=== PATIENT | male | born 1950 | race Caucasian/White ===

== ENCOUNTER 2020-07-27 09:33 | Outpatient (CLI) | payer MEDICARE, BC, SELFPAY ==
--- NOTE | 2020-07-28 17:15 | WPDSIXMINUTE ---
Six Minute Walk Six Minute Walk: DOS: 07/27/2020 REQUESTING: Jud Noland NP REASON FOR TESTING: COPD SIX MINUTE WALK This test was conducted per ATS guidelines. The initial saturation was 96% and the pulse was 87. During walking, the saturation was maintained between 92% to 94%. Pulse ranged from 87 to 112. At the conclusion, the pulse was 95. Distance walked was 800 feet / 244 meters, and was performed without stopping to rest. This distance is than expected for age,. IMPRESSION: No rebecca hypoxemia, and no supplemental O2 indicated with exertion.
== END 2020-07-27 09:34 | disposition home or self-care (01) ==
PROVIDERS: Visit Provider Nurse Practitioner
DX: R06.09 Other forms of dyspnea (principal)
CPT/HCPCS: 94618

== ENCOUNTER 2021-03-17 14:09 | Outpatient (CLI) | payer MEDICARE, BC, SELFPAY ==
--- NOTE | ~2021-03-17 | CT_ITS ---
EXAMINATION:CT diagnostic chest wo con DATE: 03/17/2021 14:34 INDICATION: Abnormal pulmonary function tests. TECHNIQUE: Computed tomography (CT) of the chest was performed without intravenous contrast. Automate d exposure control and iterative reconstruction technique were employed. The dose-length product (DLP ) was 686.53 mGy-cm. COMPARISON: None. FINDINGS: There is mild atelectasis in right lower lobe. No bronchiectasis or honeycombing. A calcifi ed left lung nodules consistent with old granulomatous disease. No pleural effusion. The heart size i s normal. There are coronary artery calcifications. No pericardial effusion. There are changes of pos terior kidney. There is a 2.3 cm mass of fat in left adrenal gland, consistent with a myelolipoma. Th ere is an electronic implant in left anterior chest wall. There is mild thoracic spondylosis. IMPRESSION: 1. Mild right lower lobe atelectasis. Reviewed, dictated and finalized at location A.
== END 2021-03-17 14:10 | disposition home or self-care (01) ==
PROVIDERS: PCP Physician Assistant; Visit Provider Nurse Practitioner
DX: R94.2 Abnormal results of pulmonary function studies (principal); J98.11 Atelectasis
CPT/HCPCS: 71250

== ENCOUNTER 2021-11-09 08:01 | Outpatient (CLI) | payer MEDICARE, BC, SELFPAY ==
--- NOTE | 2021-11-09 10:56 | WPDSIXMINUTE ---
Six Minute Walk Procedure Procedure Performed Pulmonary Stress Test (6 min walk) Six Minute Walk This is a 6 minute walk test. The test was performed and interpreted in accordance with the 2014 ERS/ATS task force guidelines. Of note the patient did walk with her own personal cane Findings: The patient's resting room air oxygen saturation measured by pulse oximetry was 93% and heart rate was 78 bpm. Patient ambulated for 305 meters and oxygen saturation remained 90 to 95%. Heart rate at the end of the study was 108 bpm. The patient did not qualify for supplemental oxygen at rest or with ambulation. There are no prior studies for comparison.
== END 2021-11-09 08:02 | disposition home or self-care (01) ==
LOC: ANHPFT 08:03
PROVIDERS: PCP Physician Assistant; Visit Provider Nurse Practitioner
DX: J44.9 Chronic obstructive pulmonary disease, unspecified (principal)
CPT/HCPCS: 94618

== ENCOUNTER 2022-02-08 15:49 | Outpatient (CLI) | payer MEDICARE, BC, SELFPAY ==
--- NOTE | ~2022-02-08 | CT_ITS ---
EXAMINATION: CT diagnostic chest w con DATE: 02/08/2022 16:34 INDICATION: Posterior chest and back pain. Patient had a fall in January. TECHNIQUE: Computed tomography (CT) of the chest was performed with 75 CC Omnipaque 350 intravenous c ontrast. Automated exposure control and iterative reconstruction technique were employed. Exam dose: 483.56 mGy-cm total exam DLP. COMPARISON: 03/17/2021 CT chest FINDINGS: Normal heart size. Coronary artery calcifications. No pericardial or pleural effusion. There is aortic and great vessel calcification. No thoracic aortic aneurysm or dissection. No hilar or mediastinal mass lesion or lymphadenopathy. There is discoid atelectasis or scarring in the middle lobe and right lower lobe. Calcified left uppe r lobe pulmonary granuloma. No pulmonary infiltrate or consolidation or suspicious pulmonary mass lesion. Status post cholecystectomy. 2.6 cm left adrenal lipoma or myelolipoma. Lower anterior cervical spine surgical fusion. There is depression of the superior vertebral endplate of T8 consistent with compression fracture. Th ere is mild anterior wedging and loss of height of a number of lower thoracic vertebral bodies. Degenerative spurring of the thoracic spine. Diffuse osteopenia. No suspicious osteolytic or osteoblastic lesions are noted. Implanted device, left anterior chest wall. IMPRESSION: Chronic elevated right diaphragm. 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 Reviewed, dictated and finalized at location A. IMPRESSION: Chronic elevated right diaphragm. 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
[2022-02-08 16:28] LABS: Estimated Glomerular Filt Rate > 60
[2022-02-08 16:57] LABS: Blood Urea Nitrogen 17 mg/dL (9-20); Estimated Glomerular Filt Rate > 60
== END 2022-02-08 15:50 | disposition home or self-care (01) ==
LOC: ANHIMG 16:00
PROVIDERS: PCP Physician Assistant; Visit Provider Nurse Practitioner
DX: R07.9 Chest pain, unspecified (principal); R91.8 Other nonspecific abnormal finding of lung field; Z90.49 Acquired absence of other specified parts of digestive tract; D17.79 Benign lipomatous neoplasm of other sites; M48.54XA Collapsed vertebra, not elsewhere classified, thoracic region, initial encounter for fracture; Z98.1 Arthrodesis status; M85.88 Other specified disorders of bone density and structure, other site
CPT/HCPCS: 71260; 82565; 84520; Q9967

== ENCOUNTER 2022-06-22 12:33 | Outpatient (CLI) | payer MEDICARE, BC, SELFPAY ==
--- NOTE | ~2022-06-22 | CT_ITS ---
EXAMINATION: CT abdomen pelvis w con DATE: 06/22/2022 13:15 INDICATION: Muscle strain. TECHNIQUE: Computed tomography (CT) of the abdomen and pelvis was performed with 100 cc Omnipaque 350 intravenous contrast. The dose-length product was 1641.70 mGy-cm. Automated exposure control and ite rative reconstruction technique were employed. COMPARISON: None. FINDINGS: Heart size normal. No significant pleural or pericardial effusion. There is asymmetric atro phy of the left rectus muscles. There is a left hip arthroplasty. The spleen is not identified, likel y surgically absent. There are small nodules in the left upper abdomen, possibly splenosis. The liver , pancreas, right adrenal gland are unremarkable. There are nonobstructing bilateral renal stones. No hydronephrosis. There is a bladder stone. There is a 3 cm fat-containing left adrenal mass, consiste nt with adrenal myelolipoma. Nonobstructive bowel gas pattern. Colonic diverticulosis without evidenc e for diverticulitis. There are surgical changes at L4-5 and L5-S1 with laminectomy and prosthetic di sc devices. No acute osseous abnormality. No free air or free fluid. IMPRESSION: 1. Bladder stone. 2: Nonobstructing bilateral nephrolithiasis. 3: Left adrenal mass containing fat measuring 3 cm, consistent with benign adrenal myelolipoma. 4: Probable splenosis. Spleen likely surgically absent. Clinically correlate. Reviewed, dictated and finalized at location A. IMPRESSION: 1. Bladder stone. 2: Nonobstructing bilateral nephrolithiasis. 3: Left adrenal mass containing fat measuring 3 cm, consistent with benign adre nal myelolipoma. 4: Probable splenosis. Spleen likely surgically absent. Clinically correlate.
[2022-06-22 13:06] LABS: Estimated Glomerular Filt Rate > 60
== END 2022-06-22 12:34 | disposition home or self-care (01) ==
LOC: ANHIMG 12:39
PROVIDERS: PCP Physician Assistant; Visit Provider Physician Assistant
DX: M54.50 Low back pain, unspecified (principal); N21.0 Calculus in bladder; E27.9 Disorder of adrenal gland, unspecified
CPT/HCPCS: 74177; Q9967

== ENCOUNTER 2022-08-01 07:41 | Outpatient (CLI) | payer MEDICARE, BC, SELFPAY ==
--- NOTE | ~2022-08-01 | MR_ITS ---
EXAMINATION: MR lumbar spine wo con DATE: 08/01/2022 08:34 INDICATION: Low back pain. TECHNIQUE: Magnetic resonance imaging (MRI) of the lumbar spine was performed without intravenous con trast. Sequences included sagittal T2-weighted FSE, sagittal T2-weighted FS FSE, sagittal T1-weighted FSE, and axial T2-weighted FSE. COMPARISON: None FINDINGS: Bone alignment is normal. Vertebral body heights are normal. There is mildly decreased disc height at L3-L4. There are changes of anterior fusion procedures at L4-L5 and L5-S1 with interbody d evices. There are L4 and L5 laminectomies. The distal spinal cord signal intensity is normal. The con us medullaris is at T12-L1. The following disc levels are specifically discussed: L1-L2: The disc does not extend beyond the endplate margin. There is mild bilateral facet joint osteo arthritis. There is no neural foraminal stenosis. There is no central canal stenosis. L2-L3: The disc is mildly bulging. There is mild bilateral facet joint osteoarthritis. There is mild left neural foraminal stenosis. There is mild central canal stenosis. L3-L4: The disc is bulging and has an annular fissure. There is severe bilateral facet joint osteoart hritis. There is moderate bilateral neural foraminal stenosis. There is mild central canal stenosis. L4-L5: There is moderate right and severe left facet joint osteoarthritis. There is mild bilateral ne ural foraminal stenosis. There is no central canal stenosis. L5-S1: There is moderate bilateral facet joint hypertrophy. There is mild lateral neural foraminal st enosis. There is no central canal stenosis. IMPRESSION: 1. Moderate lumbar spondylosis. 2. Anterior fusion procedures at L4-L5 and L5-S1. Reviewed, dictated and finalized at location A.
== END 2022-08-01 07:42 | disposition home or self-care (01) ==
PROVIDERS: PCP Physician Assistant; Visit Provider Physician Assistant
DX: M47.817 Spondylosis without myelopathy or radiculopathy, lumbosacral region (principal); M48.07 Spinal stenosis, lumbosacral region
CPT/HCPCS: 72148

== ENCOUNTER 2022-08-12 08:29 | Outpatient (CLI) | payer MEDICARE, BC, SELFPAY ==
--- NOTE | ~2022-08-12 | MR_ITS ---
EXAMINATION: MR hip RT wo con DATE: 08/12/2022 09:42 INDICATION: Right hip pain TECHNIQUE: Magnetic resonance imaging (MRI) of the right hip was performed without intravenous contr ast. Sequences included full-field axial PD-weighted FS FSE and T1-weighted FSE, coronal of the pelvi s with PD-weighted FS FSE, T2-weighted FSE and T1-weighted FSE, small field of view of the right hip with axial PD-weighted FS FSE, sagittal PD-weighted FS FSE, coronal PD-weighted FS FSE and coronal T2 weighted FSE. Additional radial T1-weighted FGR oriented orthogonal to the acetabular rim were obt ained for evaluation of the labrum. COMPARISON: None FINDINGS: Bones/labrum/cartilage: Metallic magnetic field field artifact associated with a left total hip arthroplasty which obscures t he adjacent bone and soft tissues. Additional metallic magnetic field artifact associated with bone g raft cages for anterior spinal fusion at L4-L5 and L5-S1. Minimal lumbar levocurvature. Alignment is otherwise normal. No fracture or pathologic marrow replacing process. There is a small region bounded by a double line sign of linear low T1 signal and linear high T2 signal consistent with avascular ne crosis located slightly anterior and medial to the apex of the right femoral head. The region measure s approximately 2.5 cm AP and 7 mm medial to lateral. No evident discontinuity or collapse of the ove rlying articular cortex. Marrow signal is otherwise normal. Partial-thickness cartilage loss involvin g no greater than 50% the cartilage thickness of the smooth chondral surface and without degenerative subchondral changes along the posterior superior and posterior aspect of the joint space. Small tear at the anterosuperior right acetabular labrum. Fluid: Physiologic amount fluid at the right hip joint. Left greater trochanteric bursitis with fluid collec tion measuring 6.9 cm craniocaudally and 2.5 x 1.2 cm maximal orthogonal dimensions along the postero lateral margin of the greater trochanter. There appears to be communication with a small amount of fl uid along side the femoral component of the left total hip arthroplasty assessment of which is limite d by the magnetic field artifact. Soft tissues: There is some scarring the subcutaneous tissues overlying the posterolateral aspect of the left great er trochanter with likely associated mild tendinopathy/scarring and mild fatty atrophy of the posteri or aspect of the left gluteus medius medius tendon and muscle. The bilateral iliopsoas, proximal hams tring and remaining gluteal tendons are normal. There is a homogeneously T1 hyperintense fat saturati ng intramuscular lipoma within the proximal right quadriceps muscle which measures 6 mL AP by 1.6 x 1 .3 cm in maximal transaxial dimensions. Musculature in the visualized pelvis and proximal thighs is o therwise unremarkable. 1 cm low signal intensity bladder stone along the dependent wall of the otherw ise unremarkable bladder. Moderate diverticulosis along the visualized sigmoid colon without adjacent inflammatory change to suggest diverticulitis. No pathologically enlarged pelvic/inguinal lymphaden opathy. IMPRESSION: 1. 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 2. Left greater trochanteric bursitis the region of surgical scarring related to a left total hip art hroplasty. 3. 1 cm bladder stone. Reviewed, dictated and finalized at location A. IMPRESSION: 1. Small region of osteonecrosis along the anterosuperomedial aspect of the rig ht femoral head without evident unstable fragment or collapse of the articular cortex. 2. Left greater trochanteric bursitis the region of surgical scarrin
== END 2022-08-12 08:30 | disposition home or self-care (01) ==
PROVIDERS: PCP Physician Assistant; Visit Provider Orthopaedic Surgery
DX: M70.61 Trochanteric bursitis, right hip (principal); N21.0 Calculus in bladder
CPT/HCPCS: 73721

== ENCOUNTER 2024-01-08 13:43 | Outpatient (CLI) | payer MEDICARE, BC, SELFPAY ==
--- NOTE | ~2024-01-08 | XR_ITS ---
EXAMINATION: XR abdomen/kub 1V INDICATION: Calcium kidney stone TECHNIQUE: Supine views of the abdomen were obtained on 2 radiographs. COMPARISON: CT from today FINDINGS: Bowel contents project over the kidneys limiting sensitivity for renal stones. Only one of the two left kidney stone described on today's CT scan are identified. The bowel gas pattern is moses l. Cholecystectomy clips are noted. There are changes of left hip arthroplasty. There are phleboliths of the pelvis. There is mild to moderate osteoarthritis of right hip. Anterior interbody devices are noted at L4-5 and L5-S1. IMPRESSION: 1. Left nephrolithiasis. Reviewed, dictated and finalized at location F. T PAIN COORDINATOR IMPRESSION: 1. Left nephrolithiasis.
--- NOTE | ~2024-01-08 | CT_ITS ---
EXAMINATION: CT abdomen pelvis wo con DATE: 01/08/2024 14:07 INDICATION: Calcium kidney stone TECHNIQUE: Computed tomography (CT) of the abdomen and pelvis was performed without intravenous contr ast. The dose-length product (DLP) was 746.91 mGy-cm. Automated exposure control and iterative recons truction technique were employed. COMPARISON: 06/22/2022 FINDINGS: There is chronic atelectasis of the right lower lobe. The heart size is normal. There are c hanges of cholecystectomy and splenectomy. The liver, pancreas, and right adrenal gland are normal. T here is a 3.2 cm mass of the left adrenal gland containing macroscopic fat, consistent with a myeloli devonte. There is a chronic linear, intraluminal fat density mass in the third portion of the duodenum w ithout significant change. There are two nonobstructing stones of the left kidney measuring 4 mm and 3 mm. The right kidney is unremarkable. There are no stones in the ureters or bladder. No hydronephro sis or hydroureter. No pathologically enlarged abdominal or pelvic lymph nodes are identified. No bill e intraperitoneal gas or evidence of bowel obstruction. Colonic diverticulosis is present without semaj dence of diverticulitis. Changes of left hip arthroplasty are noted. There are also changes of anteri or interbody device placement at L4-5 and L5-S1. There are umbilical and bilateral inguinal hernias c ontaining fat. IMPRESSION: 1. Nonobstructing left nephrolithiasis. Reviewed, dictated and finalized at location F. ER TACKER
== END 2024-01-08 13:44 | disposition home or self-care (01) ==
PROVIDERS: PCP Internal Medicine Gastroenterology; Visit Provider Urology
DX: N20.0 Calculus of kidney (principal)
CPT/HCPCS: 74018; 74176

== ENCOUNTER 2024-07-27 15:16 | Emergency (ER) | payer MEDICARE, BC, SELFPAY ==
--- NOTE | ~2024-07-27 | CT_ITS ---
EXAMINATION: CT abdomen pelvis w con DATE: 07/27/2024 18:27 INDICATION: right flank pain, hematuria TECHNIQUE: Computed tomography (CT) of the abdomen and pelvis was performed with 100 mL Omnipaque-350 intravenous contrast. Automated exposure control and iterative reconstruction technique were employe d. The dose-length product was 2332.90 mGy-cm. COMPARISON: 01/08/2024. FINDINGS: Lower thorax: Mild dependent atelectasis. Cardiomegaly. Coronary artery calcification. Liver: Normal. Biliary/Gallbladder: Gallbladder is absent. No bile duct dilation. Pancreas: Mild fatty infiltration. Spleen: Status post splenectomy. Adrenals:Left adrenal myelolipoma. Kidneys: Multiple punctate bilateral calcifications. Hypodensity in the left upper pole, too small to characterize but likely represents a cyst. GI tract: No small or large bowel dilation. 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 Appendix not confidently visualiz ed. Diverticulosis without diverticulitis. Mesentery/Peritoneum: No ascites, mass, or free air. Retroperitoneum: No mass. Pelvis: Pelvic organs are within normal limits noting partial obscuration from adjacent hardware. Soft Tissues: Small fat-containing uncomplicated umbilical and bilateral inguinal hernias. Left rectu s abdominous atrophy. Bones: No acute osseous finding. Partially visualized, uncomplicated appearing left hip arthroplasty hardware. Interbody devices at L4-5 and L5-S1. IMPRESSION: No acute abdominopelvic process detected. Reviewed, dictated and finalized at location K.
--- NOTE | ~2024-07-27 | XR_ITS ---
EXAM: XR abdomen/kub 1V DATE: 07/27/2024 17:11 HISTORY: possible kidney stone . COMPARISON: 01/08/2024; CT abdomen pelvis 01/08/2024. FINDINGS: Surgical clips at the lumbosacral junction. Uncomplicated appearing incompletely visualize d interbody devices and left hip arthroplasty hardware. Loop of dilated small bowel over the left abd omen. No organomegaly. No abnormal abdominal calcification. Lumbar degenerative disc disease. IMPRESSION: Focal small bowel dilation of the left abdomen, could represent localized ileus. Previous ly detected left renal stones not confidently visualized which could be secondary to obscuration by a rtifact or interval passage. Reviewed, dictated and finalized at location K. IMPRESSION: Focal small bowel dilation of the left abdomen, could represent loc alized ileus. Previously detected left renal stones not confidently visualized which could be secondary to obscuration by artifact or interval passage.
[2024-07-27 15:22] VITALS: BP 159/91; PULSE 89; RESP 16; TEMP 36.3; O2SAT 93
--- NOTE | 2024-07-27 16:55 | ECG_ITS ---
Test Date: 2024-07-27 17:20:17 Measurements Intervals [place] Rate: 79 P: 20 CA: 179 QRS: 0 QRSD: 87 T: 41 QT: 370 QTc: 426 Interpretive Statements SINUS RHYTHM CONSIDER INFERIOR INFARCT, AGE INDETERMINATE BASELINE ARTIFACT- I, II, III, AVR, AVL ABNORMAL ECG No previous ECG available for comparison Electronically Signed On 07-27-2024 19:54:52 CDT by Porter Choudhary D.O.
--- NOTE | 2024-07-27 17:00 | ED.MALEGU ---
HPI - Male Genitourinary General Chief complaint: Urogenital-Male <Elva Mixon PROGRAM AIDE - Last Filed: 07/27/24 17:04> Stated complaint: sent by PCP peeing blood clots <Elva Mixon APRN - Last Filed: 07/27/24 17:04> Time Seen by Provider: 07/27/24 16:50 <Elva Mixon APRN - Last Filed: 07/27/24 17:04> Focused HPI: Patient is a 74-year-old male who presents to the ER with blood clots in his urine. He reports he has had back pain for the last month and a half but increased in severity earlier today. Patient reports he has never had urinary blood clots in the past. Today the patient endorses right upper quadrant abdominal pain and severe right-sided flank pain. He reports the pain increases with movement. Patient also endorses a bloated abdomen. He does have a primary care doctor and urologist. Patient reports he has a heart condition, history of AFib, and history of COPD. He denies chest pain at this time but does endorse mild shortness of breath that is often his baseline breathing status. GENERAL: Well-appearing, well-nourished, and in no acute distress. HEAD: Normocephalic, atraumatic. CHEST: Clear to auscultation. ?No respiratory distress. HEART: Regular rate and rhythm.? NEURO: ?Alert and oriented x3. Patient screened in triage and initial orders placed.? ?Additional care and disposition to be based upon?diagnostic testing and treatment. <Elva Mixon APRN - Last Filed: 07/27/24 17:04> Related Data Allergies/Adverse reactions: Allergies Allergy/AdvReac Type Severity Reaction Status Date / Time celecoxib [From Celebrex] Allergy Unknown Verified 07/27/24 15:20 erythromycin base Allergy Unknown Verified 07/27/24 15:20 [From Ilosone] latex Allergy Unknown Verified 07/27/24 15:20 naproxen [From Aleve] Allergy Unknown Verified 07/27/24 15:20 NSAIDS (Non-Steroidal Allergy Unknown Verified 07/27/24 15:20 Anti-Inflamma Penicillins Allergy Unknown Verified 07/27/24 15:20 phenazopyridine Allergy Unknown Verified 07/27/24 15:20 [From Pyridium] Sulfa (Sulfonamide Allergy Unknown Verified 07/27/24 15:20 Antibiotics) sulfamethoxazole Allergy Unknown Verified 07/27/24 15:20 [From Bactrim] trimethoprim [From Bactrim] Allergy Unknown Verified 07/27/24 15:20 <Elva Mixon APRN - Last Filed: 07/27/24 17:04> Review of Systems Review of Systems: CONSTITUTIONAL: Denies fever GASTROINTESTINAL: Reports abdominal pain. Denies nausea, vomiting, or diarrhea. GENITOURINARY: Reports hematuria. Denies dysuria MUSCULOSKELETAL: Reports back pain, joint pain, and myalgia. NEUROLOGIC: Denies numbness, or weakness. <Jud Lindquist PA-C - Last Filed: 07/27/24 20:44> All systems reviewed & are unremarkable except as noted in HPI and below <Jud Lindquist PA-C - Last Filed: 07/27/24 20:44> PMFSH Past Medical History Medical History: Medical History (Updated 07/27/24 @ 20:39 by Jud Lindquist PA-C) History of hyperlipidemia History of hypertension <Elva Mixon APRN - Last Filed: 07/27/24 17:04> Social History Social History: Social History (Updated 07/27/24 @ 18:03 by Jud Lindquist PA-C) Smoking status: Former smoker <Elva Mixon APRN - Last Filed: 07/27/24 17:04> Exam Narrative: GENERAL: Well-appearing, well-nourished, and in no acute distress. HEAD: Normocephalic, atraumatic. EYES: EOMI. CHEST: Clear to auscultation. No respiratory distress. No wheezes rales or rhonchi HEART: Regular rate and rhythm. No murmur heard. Normal peripheral pulses. ABDOMEN: Soft,nondistended, normal active bowel sounds. Tender to palpation throughout the right side of the abdomen, without guarding EXTREMITIES: Normal range of motion. No edema. SKIN: Warm, dry, no rash. NEURO: No focal deficits. Alert and oriented x3. PSYCH: Normal mood and affect <Jud Lindquist PA-C - Last Filed: 07/27/24 20:44> Course Course
[2024-07-27] MEDS: HYDROcodone/acetaminophen (*CRX) 5-325 MG TABLET 1 TAB PO (17:25)
[2024-07-27 17:28] VITALS: BP 145/84; PULSE 85; RESP 20; O2SAT 93
[2024-07-27 17:28] LABS: Basophils Percent Auto 0.3 % (0.2-1.2); Eosinophils Absolute Auto 0.4 K/mm3 (0-0.3); Eosinophils Percent Auto 3.2 % (0-4.4); Hematocrit 45.7 % (42.0-52.0); Hemoglobin 15.3 g/dL (14.0-18.0); Immature Granulocyte Absolute 0.03 K/mm3 (0.00-0.031); Immature Granulocyte Percent A 0.2 % (0-0.5); Lymphocytes Absolute Auto 4.98 K/mm3 (0.9-3.2); Lymphocytes Percent Auto 38.3 % (18.3-44.2); Mean Corpuscular HGB Conc 33.5 g/dl (32-36); Mean Corpuscular Hemoglobin 32.1 pg (26-34); Mean Corpuscular Volume 95.8 fl (80-100); Mean Platelet Volume 10.2 fl (7.4-10.4); Monocytes Absolute Auto 1.6 K/mm3 (0.1-0.6); Monocytes Percent Auto 12.6 % (2.6-8.5); Neutrophils Absolute Auto 5.9 K/mm3 (1.3-6.7); Neutrophils Percent Auto 45.4 % (45.5-73.1); Platelet Count Result 223 k/mm3 (150-375); Red Blood Count 4.77 M/mm3 (4.6-6.20); Red Cell Distribution Width 14.3 % (11.5-14.5)
[2024-07-27 17:30] LABS: Add Urine Microscopic? YES; Appearance Urine Cloudy (Clear); Bacteria Urine None Seen /hpf; Bilirubin Urine Negative (Negative); Blood Urine 3+ (Negative); Color Urine Yellow (Yellow); Glucose Urine UA Negative (Negative); Ketones Urine Trace mg/dL (Negative); Leukocyte Esterase Ur Negative LEU/UL (Negative); Nitrate Urine Negative (Negative); Protein Urine Negative (Negative); RBC Urine >100 /hpf (0-2); Specific Grav Ur 1.028 (1.001-1.035); Squamous Epithelial Cell Urine None Seen /hpf (Few); WBC Urine 0-5 /hpf (0-3); pH Urine 5.5 (5.0-9.0)
[2024-07-27 17:37] LABS: Partial Thromboplastin Time 24.2 Seconds (22.3-36.8); Prothrombin Time 13.5 Seconds (11.1-14.7)
[2024-07-27 17:58] LABS: Alanine Aminotransferase 41 U/L (6-50); Albumin Level 4.4 g/dL (3.5-5.1); Alkaline Phosphatase 65 U/L (38-126); Anion Gap 7 mmol/L (4-12); Aspartate Amino Transferase 37 U/L (17-59); Bilirubin,Total 0.4 mg/dL (0.2-1.3); Blood Urea Nitrogen 26 mg/dL (9-20); Carbon Dioxide 29 mmol/L (22-30); Chloride 102 mmol/L (98-107); Estimated CRCL calculation 90 ml/min; Estimated Glomerular Filt Rate > 60; Glucose 107 mg/dL (65-110); Lipase 53 U/L (23-300); Magnesium 2.2 mg/dL (1.6-2.3); Potassium 4.8 mmol/L (3.4-5.0); Sodium 138 mmol/L (137-145); Troponin I < 0.012 ng/mL (0.000-0.034)
[2024-07-27] MEDS: ONDANSETRON INJ 4 MG/2 ML VIAL IV PUSH (18:28)
[2024-07-27] MEDS: MORPHINE SULFATE (*CRX) 4 MG/ML INJ IV PUSH (18:28)
[2024-07-27 18:32] VITALS: BP 135/81; PULSE 81; RESP 20; O2SAT 94
[2024-07-27 19:16] VITALS: BP 138/75; PULSE 82; RESP 16; TEMP 36.4; O2SAT 93
[2024-07-27 20:48] VITALS: BP 138/76; PULSE 85; RESP 20; O2SAT 98
== END 2024-07-27 20:49 | disposition home or self-care (01) ==
PROVIDERS: Registered Nurse; Emergency Provider Physician Assistant; PCP Internal Medicine Gastroenterology
DX: R31.0 Gross hematuria (principal); I48.91 Unspecified atrial fibrillation; I10 Essential (primary) hypertension; J44.9 Chronic obstructive pulmonary disease, unspecified; E78.5 Hyperlipidemia, unspecified; Z87.891 Personal history of nicotine dependence; R94.31 Abnormal electrocardiogram [ECG] [EKG]
CPT/HCPCS: 36415; 74018; 74177; 80053; 81001; 83690; 83735; 84484; 85025; 85610; 85730; 87086; 93005; 96374; 96375; 99284; A9270; J2270; J2405; Q9967

== ENCOUNTER 2025-07-09 09:48 | Emergency (ER) | payer OTHER, MEDICARE, BC, SELFPAY ==
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
[2025-07-09 09:53] VITALS: BP 141/84; PULSE 90; RESP 20; TEMP 36.6; O2SAT 94
--- OUTSIDE RECORDS SUMMARY | 2025-07-09 10:15 | XMS_ITS | Clinical Summary ---
Author Organization [facility] Physician [facility] Building [address] [place] [id number] Care Team Providers Care Audiology Director Name Role Phone Dimitrios Monroy Primary Care Provider + Yolanda Pritchard MD Unavailable [phone] Allergies Active Allergy Reactions Criticality Noted Date Comments Adhesive Tape-Silicones Other (See comments) Low 01/23/2018 blisters Celecoxib Anaphylaxis High 01/09/2018 Ilosone Unknown 05/03/2021 Iodinated Contrast Media Other (See comments) Low 09/15/2018 Pyridium IV dye caused choking Latex Swelling,Blisters,R edness High 01/12/2019 Lisinopril Cough Low 02/02/2014 Nsaids (Non-Steroidal Anti-Inflammatory Drug) Swelling High 07/27/2020 Penicillins Anaphylaxis High 01/09/2018 Patient received cefazolin 09/22/2018 Previously tolerated ceftriaxone (11/29) Phenazopyridine Unknown 05/03/2021 Sulfa (Sulfonamide Antibiotics) Anaphylaxis High 01/09/2018 Sulfamethoxazole-Trimeth oprim Medications traZODone (DESYREL) 50 mg tablet Take 50 mg by mouth nightly. Active baclofen (LIORESAL) 10 mg tablet Take 2 tablets (20 mg total) by mouth 2 (two) times a day Active OXcarbazepine (TRILEPTAL) 150 mg tablet Take 1 tablet (150 mg total) by mouth 2 (two) times a day Active gabapentin (NEURONTIN) 300 mg capsule Take 1 capsule (300 mg total) by mouth 3 (three) times a day Active umeclidinium-vi lanterol (ANORO ELLIPTA) 62.5-25 mcg/actuation blister with device Inhale 1 puff daily Active acetaminophen ER (TYLENOL) 650 mg 8 hr tablet Take 1 tablet (650 mg total) by mouth 2 (two) times a day Active tnxedsug-idg-AG -lycopen-lutein 0.4-300-250 mg-mcg-mcg tabletIndicatio ns:Vitamin Deficiency Prevention Take 1 tablet by mouth daily Active calcium citrate-vitamin D3 500 mg calcium -400 unit tablet,chewable Take 1 tablet by mouth daily. Active albuterol HFA (PROVENTIL HFA,VENTOLIN HFA,PROAIR HFA) 90 mcg/actuation inhaler Inhale 2 puffs 4 (four) times a day as needed Active VITAMIN D2 50,000 unit capsuleIndicati ons:Saturday Take 1 capsule (50,000 Units total) by mouth once a week Saturday 8 Active amLODIPine (NORVASC) 10 mg tablet Take 1 tablet (10 mg total) by mouth daily Active magnesium oxide 400 mg capsule Take 1 tablet by mouth 2 (two) times a day. Active DULoxetine DR (CYMBALTA) 30 mg capsule Take 1 capsule (30 mg total) by mouth daily Active docusate sodium (COLACE) 100 mg capsuleIndicati ons:constipatio n Take 1 capsule (100 mg total) by mouth 2 (two) times a day. 90 capsule 1 9 Active ascorbic acid (VITAMIN C) 500 mg tablet,chewable Take 1 tablet/chew tab (500 mg total) by mouth 2 (two) times a day Active furosemide (LASIX) 20 mg tablet Take 2 tablets (40 mg total) by mouth daily Active spironolactone (ALDACTONE) 50 mg tablet Take 50 mg by mouth daily. [address] (NexIUM) 40 mg granule packet for oral suspension Take 40 mg by mouth daily. Active potassium chloride ER (KLOR-CON) 20 mEq CR tablet Take 1 tablet (20 mEq total) by mouth daily Active tiotropium (SPIRIVA) 18 mcg per inhalation capsule Spiriva with HandiHaler 18 mcg and inhalation capsules Active atorvastatin (LIPITOR) 20 mg tablet atorvastatin 20 mg tablet TAKE 1 TABLET DAILY Active acetaminophen-c odeine (TYLENOL with CODEINE #3) 300-30 mg per tabletIndicatio ns:Pain,Do not use any machinery or drive at least for 24 hours after taking pain medication, Take 1 tablet by mouth every 6 (six) hours as needed for pain 60 tablet 1 0 Active Additional Information Patient not taking.Reported on 02/06/2024 aspirin 81 mg enteric coated tablet Take by mouth 7 Active alfuzosin ER (UROXATRAL) 10 mg 24 hr tablet Take 1 tablet (10 mg total) by mouth daily Active VITAMIN E ACETATE, BULK, MISC 180 mg cleaner and preparer before breakfast Active carvediloL (COREG) 3.125 mg tablet Take 1 tablet (3.125 mg total) by mouth 2 (two) times a day Active cholecalciferol (Dialyvite Vitamin D3 Max) 55948 unit tablet Dialyvite Vitamin D3 Max 1,250 mcg (50,000 unit) tablet 5 Active cyclobenzaprine (FLEXERIL) 10 mg tablet TAKE 1 TABLET BY MOUTH EVERY DAY AT BEDTIME NEEDED FOR 30 DAYS 4 Active finasteride (PROSCAR) 5 mg tablet 4 Active fluticasone propionate (FLONASE) 50 mcg/actuation nasal spray SHAKE LIQUID AND USE 1 SPRAY IN EACH NOSTRIL TWICE DAILY 4 Active amLODIPine (NORVASC) 5 mg tablet TAKE 1 TABLET BY MOUTH DAILY IN THE EVENING NEEDED [address] (NexIUM) 40 mg capsule 4 Active potassium chloride ER 10 mEq CR tablet 4 Active spironolactone (ALDACTONE) 25 mg tablet 4 Active Active Problems Problem Noted Date Diagnosed Date Abnormal respiratory laboratory results 05/03/20 21 Abnormal tomography of chest 05/03/2021 s/p C3-4 Anterior fusion and subsequent C5-[address] Porter 05/03/2021 s/p L4-5 and L5-S1 ALIF by Dr. Porter 05/03/2021 Restrictive lung disease 03/21/2021 Underimmunized 02/17/2021 Acute lymphadenitis 02/03/2021 Ex-smoker 01/20/2021 Cellulitis of left thumb 12/22/2020 Arthritis of carpometacarpal (CMC) joint of both thumbs 10/27/2020 Assessment & Plan (10/27/2020 11:46 AM SONG AND DANCE PERFORMER): Patient has advanced arthritis of the CMC joints of both of his thumbs. He wants to avoid any surgical intervention and have provide him with splints that may stabilize the thumb. He may find commercially available a last thumb sleeves beneficial as well to provide additional support. This progresses other interventions may be required Trigger middle finger of right hand 10/27/2020 Assessment & Plan (10/27/2020 11:46 AM SONG AND DANCE PERFORMER): Patient has active triggering of the right middle finger. After reviewing the treatment options elected undergo a cortisone injection today. He tolerated the procedure well. Muscle spasms of neck 09/09/2020 Bronchiectasis 06/07/2020 Rash 05/20/2020 Chest pain, rule out acute myocardial infarction 05/20/2020 Puncture wound of hand, left , complicated, initial encounter 05/20/2020 Enthesopathy of hip region 04/26/2020 Low back pain 04/26/2020 Osteoarthritis of hip 04/26/2020 Primary localized osteoarthritis of pelvic regio n and thigh 04/26/2020 Carotid artery stenosis 12/17/2019 Excessive sweating 11/20/2019 Fracture of two ribs 10/19/2019 Vasovagal syncope 10/19/2019 Osteoarthritis of left knee 08/27/2019 Costochondritis, acute 08/27/2019 Sacroiliac pain 08/27/2019 Arthritis of right hip 08/27/2019 Acute bronchitis 08/19/2019 Lump in central portion of left breast 9 Diverticulitis 07/21/2019 Diverticulitis of colon 07/21/2019 Chronic hip pain after total replacement of left hip joint 06/20/2019 Acute folliculitis 06/17/2019 It band syndrome, left 03/04/2019 Tendonitis, Achilles, left 03/04/2019 Edema of lower extremity 02/24/2019 Hypertension 02/10/2019 Hyperlipidemia 02/10/2019 Seizure disorder 02/10/2019 GERD (gastroesophageal reflux disease) 9 COPD (chronic obstructive pulmonary disease) 12/2018 Anemia 02/10/2019 CHF (congestive heart failure) 02/10/2019 Depression 02/10/2019 Neuropathy 02/10/2019 Arthritis 02/10/2019 Revision of total left hip arthroplasty 02/11/20 19 Chronic constipation 02/10/2019 Infected orthopedic implant 12/10/2018 History of total left hip replacement 12/10/2018 Neuropathy 11/17/2018 Depression 11/17/2018 Left hip postoperative wound infection 8 Wound drainage 10/06/2018 SOB (shortness of breath) 10/04/2018 Postoperative infection 10/04/2018 Localized edema 10/04/2018 Dysuria 10/04/2018 Seizure disorder 10/04/2018 Hypertension 09/23/2018 Hyperlipidemia 09/23/2018 COPD (chronic obstructive pulmonary disease) Insomnia 09/23/2018 GERD (gastroesophageal reflux disease) 8 Bladder dysfunction 09/23/2018 Status post-operative repair of closed fracture of left hip 09/23/2018 Cervical radiculopathy 09/23/2018 Avascular necrosis of left femoral head 09/16/20 18 Overactive bladder 05/05/2018 Fatigue 04/21/2018 Hypokalemia 04/21/2018 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 Leukocytosis 04/21/2018 Nocturia 04/21/2018 Obesity 04/21/2018 Screening for malignant neoplasm of prostate Encounter for screening for other disorder 06/13 Occlusion and stenosis of bilateral carotid katelyn abby 02/22/2017 Other abnormal glucose 02/06/2017 Sleep apnea, unspecified 02/06/2017 Supraventricular tachycardia 02/06/2017 Family history of heart disease 07/21/2015 Presence of other cardiac implants and grafts Personal history of other diseases of the digest saira system 02/02/2014 Ventricular premature depolarization 09/04/2013 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 07/02/2013 Vitamin D deficiency 07/02/2013 Pneumoconiosis due to asbestos and other mineral fibers 07/21/2009 Cough 06/16/2009 Cellulitis of left hip Numerous skin moles Encounters Date Type Department Care Team Description 06/24/2025 12:15 PM CDT - 06/24/2025 11:59 PM CDT Hospital Encounter [facility] [address] [place] [address] Postconcussional syndrome Discharge Disposition: Discharge to home or self care from Last 3 Months Immunizations Immunization Administration Dates Next Due Tdap 05/21/2020 Surgical History Surgery Date Site/Laterality Comments BACK SURGERY X 5 OTHER SURGICAL HISTORY loop recorder TONSILLECTOMY APPENDECTOMY WRIST FRACTURE SURGERY 1963, 2004 Left SPLENECTOMY, TOTAL 11/11/1967 - 11/10/1968 FINGER SURGERY te-attached right index finger NOSE SURGERY SPINAL FUSION 1979, 1984 CERVICAL SPINE SURGERY 1990, 2001, 2007 CHOLECYSTECTOMY HERNIA REPAIR KIDNEY STONE SURGERY IR PICC LINE PLACEMENT > 5 YEARS 10/08/2018 N/A IR PICC LINE PLACEMENT > 5 YEARS 11/13/2018 N/A FLUORO GUIDED ASPIRATION HIP LEFT 12/30/2018 Left ATRIAL ABLATION SURGERY BREAST LUMPECTOMY Right X 2 HIP SURGERY 09/22/2018 Left HIP SURGERY 02/09/2019 Left Revision Arthroplasty of Total Left Hip - Left FLUORO GUIDED INJECTION HIP RIGHT 05/03/2020 Right BREAST BIOPSY 12/09/2017 Right Medical History Medical History Date Comments Hypertension COPD (chronic obstructive pulmonary disease) Emphysema of lung GERD (gastroesophageal reflux disease) Hyperlipidemia Depression History of transfusion Arthritis Syncope Avascular necrosis (HCC) left hi p, s/p THR 09/22/18 Awareness under anesthesia CHF (congestive heart failure) (HCC) Asbestosis (HCC) Diverticulosis Constipation Staph infection left hip Kidney stone Neuropathy Spinal stenosis in cervical region Anemia Family History Medical History Relation Name Comments PTSD Father Heart disease Mother Stroke Mother Relation Name Status Comments Father Mother Social History Tobacco Use Types Packs/Day Years Used Date Smoking Tobacco: Former Cigarettes Q uit: 11/22/2000 Smokeless Tobacco: Former Alcohol Use Standard Drinks/Week Comments Yes 0 (1 standard drink = 0.6 oz pur e alcohol) occasional Social Connection and Isolation Panel Answer Date Recorded Frequency of Communication with Friends and Fami ly Three times a week 02/09/2019 Frequency of Social Gatherin gs with Friends and Family Patient declined 02/09/2019 Attends [employer]ist Services Patient declined 11/2018 Active Member of Clubs or Organizations Patient declined 02/09/2019 Attends Club or Organization Meetings Patient de clined 02/09/2019 Marital Status 02/09/2019 AUDIT-C Answer Date Recorded Frequency of Alcohol Consumption 2-4 times a mon th 02/09/2019 Average Number of Drinks Not on file 019 Frequency of Binge Drinking Not on file 11/2018 Overall Financial Resource Strain (CARDIA) Answe r Date Recorded Difficulty of Paying Living Expenses Not hard at all 02/09/2019 PRAPARE - Transportation Answer Date Re corded Lack of Transportation (Medical) No 02/09/2019 Lack of Transportation (Non-Medical) No 02/09/2019 Sex and Gender Information Value Date Recorded Sex Assigned at Not on file Legal Sex Male 12:08 AM SONG AND DANCE PERFORMER Gender Identity Not on file Sexual Orientation Not on file Occupation Industry Job Start Date Job End Date retired Not on file Not on file Not on file Obstetrics History Last Filed Vital Signs Vital Sign Reading Time Taken Comments Blood Pressure 128/68 02/06/2024 2:27 PM CDT Pulse 74 02/06/2024 2:27 PM CDT Temperature 36.8 C (98.2 F) 08/27/2022 6:14 AM CDT Respiratory Rate 18 08/27/2022 6:14 AM CDT Oxygen Saturation 91% 08/27/2022 9:05 AM CDT Inhaled Oxygen Concentration - - Weight 120.2 kg (265 lb) 02/06/2024 2:27 PM CDT Height 185.4 cm (6' 1) 02/06/2024 2:27 PM CDT Body Mass Index 34.96 02/06/2024 2:27 PM CDT Plan of Treatment Health Maintenance Due Date Last Done Comments Colon Cancer Screening-Colonoscopy 1950 Depression Screening 1950 Hepatitis C Screening 1950 Hepatitis B Screening 02/14/1970 Zoster Vaccine (1 of 2) 02/14/2002 Pneumococcal vaccine 65+ (2 of 2 - PPSV23, PCV20, or PCV21) 10/13/2015 08/18/2015 Well Visit 65+ 02/14/2017 Fall Risk Assessment 08/27/2023 08/27/2022 Influenza Vaccine (#1) 2025 4, 09/12/2020, 08/19/2019, Additional history exists DTaP/Tdap/Td Vaccine (3 - Td or Tdap) 05/21/2030 05/21/2020, 12/10/2014 Abdominal Aortic Aneurysm (A AA) Screen Completed 05/27/2018 Medical Devices Implanted Type Area Cement Rubber Device Identifier Shelf Expiration Date Model / Serial / Lot Loop Recorder-Biomonit or Left: Chest Description: Use of a clinical MR system with a cylindrical bore and a static magnetic field strength of: 1.5 Allyn for BioMonitor 2, BIOMONITOR III, and BIOMONITOR IIIm. 3.0 Allyn for BioMonitor 2, BIOMONITOR III and BIOMONITOR IIIm. The MR scanner's gradient jewell' slew rate should not exceed 200 T/m/s per axis. For the head: May also use local transmit and/or college scouting coordinator coils. For the extremities: May also use local transmit and/or college scouting coordinator coils. Only local college scouting coordinator coils may be used for the thorax (chest region). Maximum spatial gradient of the static magnetic field specification must be <= 100T/m (10,000 gauss/cm). Under worst case conditions, the BioMonitor 2, BIOMONITOR III and BIOMONITOR IIIm are expected to produce; a maximum temperature rise of <4.5 C after 30 minutes of continuous scanning. Image artifact and distortion can result from the presence of the BioMonitor 2 or BIOMONITOR III(m) device within the field of view. Image artifact and distortion resulting from the presence of the device within the field of view must be considered when selecting the field of view and imaging parameters. These factors must also be considered when interpreting the MR images. Restrictions during the MR Scan The following conditions must be met during the MR scan: For BioMonitor 2 the MR scan MUST be performed with the patient in supine position. The mean specific absorption rate (HERO) for the whole body as displayed by the MR scanner must not exceed 4.0W/kg. The head absorption rate displayed by the MR scanner must not exceed 3.2W/Kg. [employer] [id number] Palacos R Cement 40gm Bone Green - [id number] Implanted:Qty: 2 on 11/10/2018 by Sung Menon MD at [facility] Left: Hip [employer] 01/08/2022 [id number] / / [id number] Description:Bone cement mixe d with: 4gm vancomycin- lot #[id number], ex: 02/2020 2.4gm tobramycin- lot #[id number], ex: 01/2021 200mg Amphotericin B- lot #[id number], ex: 05/2019 (150mg) and lot #[id number], ex: 10/2019 (50mg) [employer] [id number] Palacos R Cement 40gm Bone Green - [id number] Implanted:Qty: 1 on 11/10/2018 by Sung Menon MD at [facility] Left: Hip [employer] 07/11/2022 [id number] / / [id number] Description:Cement mixed wit h 2nd cement batch with lot #[id number] Also mixed with: 4gm Vancomycin- lot #[id number], Ex: 02/2020 200mg Amphotericin B- lot #[id number], ex: 05/2019 (100mg), lot #[id number], ex: 10/2019 (50mg), lot #[id number], ex: 10/2019 (50mg) 2.4gm Tobramycin- lot #[id number], ex: 01/2021 Cement Bone Palacos R High Viscosity - [id number] Implanted:Qty: 1 on 11/10/2018 by Sung Menon MD at [facility] Left: Hip [employer] 02/08/2022 [id number] / / [id number] Description:Cement mixed wit h 2nd cement batch with lot #[id number] Also mixed with: 4gm Vancomycin- lot #[id number], Ex: 02/2020 200mg Amphotericin B- lot #[id number], ex: 05/2019 (100mg), lot #[id number], ex: 10/2019 (50mg), lot #[id number], ex: 10/2019 (50mg) 2.4gm Tobramycin- lot #[id number], ex: 01/2021 Synthes 355.042s 2.5mm 950mm Smooth Tip Guide Tyrell [employer] Titanium Sterile - [id number] Implanted:Qty: 1 on 11/10/2018 by Sung Menon MD at [facility] Left: Hip Synthes I 03/10/2025 355.042S / / [id number] [employer] [id number] G7 58mm Multihole Hip G Hemisphere Offset Shell Acetabular - [id number] Implanted:Qty: 1 on 02/09/2019 at [facility] Left: Hip [employer] 10/16/2028 [id number] / / [id number] [employer] [id number] Trilogy 6.5mm 30mm Self Tap Acetabular Cortical Screw Bone - [id number] Implanted:Qty: 1 on 02/09/2019 at [facility] Left: Hip [employer] 11/10/2028 [id number] / / [id number] [employer] [id number] Trilogy 6.5mm 30mm Self Tap Acetabular Cortical Screw Bone - [id number] Implanted:Qty: 1 on 02/09/2019 at [facility] Left: Hip [employer] 11/10/2028 [id number] / / [id number] [employer] [id number] Trilogy 6.5mm 25mm Self Tap Screw Bone - [id number] Implanted:Qty: 1 on 02/09/2019 at [facility] Left: Hip [employer] 03/10/2028 [id number] / / [id number] [employer] [id number] Trilogy 6.5mm 15mm Self Tap Screw Bone - [id number] Implanted:Qty: 1 on 02/09/2019 at [facility] Left: Hip [employer] 02/09/2028 [id number] / / [id number] [employer] [id number] Vazquez Sl Revision 19mm 225mm Distal Fill Hip 135d 12/14 Stem - [id number] Implanted:Qty: 1 on 02/09/2019 at [facility] Left: Hip [employer] 03/10/2023 [id number] / / [id number] [employer] [id number] Legacy Versys 40mm Hip 0mm 12/14 Head Femoral Zimaloy Sterile - [id number] Implanted:Qty: 1 on 02/09/2019 at [facility] Left: Hip [employer] 01/09/2028 [id number] / / [id number] [employer] Integra Accell Evo3 Putty Graft 10cc Bone Demineralized Bone - [id number] - [id number] Implanted:Qty: 1 on 02/09/2019 at [facility] Left: Hip [employer] 09/07/2019 / [id number] / [id number] Liner Acetabular G7 Arcomxl G Id40 Mm Hip High Wall - [id number] Implanted:Qty: 1 on 02/09/2019 by Sung Menon MD at [facility] Left: Hip [employer] 01/02/2023 [id number] / / [id number] Biotronik RxAdvance Biomonitor Iii Monitor Cardiac Sterile Disposable Latex Free [id number] - [id number] - [id number] Implanted:Qty: 1 on 08/27/2022 by Daniel Calderón MD at [facility] [employer] [id number] / [id number] / Explanted Type Area Cement Rubber Device Identifier Shelf Expiration Date Model / Serial / Lot [employer] [id number] G7 56mm Limit Hole Color Coded Hip F Hemisphere Offset Shell - [id number] Implanted:Qty: 1 on 09/22/2018 by Sung Menon MD at [facility] Explanted:Qty: 1 on 11/10/2018 at [facility] Left: Hip [employer] 06/12/2028 [id number] / / [id number] Description:Removed 11/10/20 18 [employer] [id number] Trilogy 6.5mm 25mm Self Tap Screw Bone - [id number] Implanted:Qty: 1 on 09/22/2018 by Sung Menon MD at [facility] Explanted:Qty: 1 on 11/10/2018 at [facility] Left: Hip [employer] 06/10/2028 [id number] / / [id number] Description:Removed 11/10/20 18 [employer] [id number] Trilogy 6.5mm 30mm Self Tap Acetabular Cortical Screw Bone - [id number] Implanted:Qty: 1 on 09/22/2018 by Sung Menon MD at [facility] Explanted:Qty: 1 on 11/10/2018 at [facility] Left: Hip [employer] 07/11/2028 [id number] / / [id number] Description:Removed 11/10/20 18 Liner Acetabular G7 E1 F Id36 Mm Hip High Wall - [id number] Implanted:Qty: 1 on 09/22/2018 by Sung Menon MD at [facility] Explanted:Qty: 1 on 11/10/2018 at [facility] Left: Hip [employer] 06/17/2023 [id number] / / [id number] Description:Removed 10/06/20 18 [employer] [id number] Echo Bi-Metric 16mm 160mm Noncollar Full Proximal Profile Press - [id number] Implanted:Qty: 1 on 09/22/2018 by Sung Menon MD at [facility] Explanted:Qty: 1 on 11/10/2018 at [facility] Left: Hip [employer] 05/16/2027 [id number] / / [id number] Description:Removed 10/06/20 18 [employer] [id number] G7 36mm Type 1 Hip -6mm Offset Head Femoral Cocr - [id number] Implanted:Qty: 1 on 09/22/2018 by Sung Menon MD at [facility] Explanted:Qty: 1 on 11/10/2018 at [facility] Left: Hip [employer] 07/18/[id number] / / [id number] Description:Removed 10/06/20 18 [employer] [id number] G7 36mm Type 1 Hip -6mm Offset Head Femoral Cocr - [id number] Implanted:Qty: 1 on 10/06/2018 by Sung Menon MD at [facility] Explanted:Qty: 1 on 11/10/2018 at [facility] Left: Hip [employer] 07/10/[id number] / / Description:Removed 11/10/20 18 Liner Acetabular G7 E1 F Id36 Mm Hip High Wall - [id number] Implanted:Qty: 1 on 10/06/2018 by Sung Menon MD at [facility] Explanted:Qty: 1 on 11/10/2018 at [facility] Left: Hip [employer] 01/02/2023 [id number] / / Description:Removed 11/10/20 18 [employer] [id number] G7 Liner Removal Screw Acetabular Poly Disposable - [id number] Explanted:Qty: 1 on 02/09/2019 at [facility] Left: Hip [employer] [id number] / / Procedures Procedure Name Priority Date/Time Associated Diagnosis Comments MRI BRAIN WO CONTRAST Schedule Routine, Read Routine (OP Routine) 06/24/2025 1:07 PM CDT Postconcussional syndrome from Last 3 Months Results * MRI Brain WO Contrast (06/24/2025 1:07 PM CDT) Anatomical Region Laterality Modality Head and Neck N/A Magnetic Resonan ce 06/25/2025 8:36 AM CDT Narrative 06/25/2025 8:40 AM CDT EXAM DESCRIPTION: MRI BRAIN WITHOUT CONTRAST REASON FOR STUDY: Dizziness and gait imbalance status post fall from unspecified height with acute closed head injury early May 2025. No provided focal neurologic deficits. No provided past medical or surgical history. TECHNIQUE: Multiplanar imaging includes non-contrasted T1, T2, FLAIR, and diffusion with ADC map sequences. Additional sequence(s) sensitive to blood products. Images stored on PACS. COMPARISON: Relevant portions of MRI cervical spine without contrast 05/12/2021. FINDINGS: CEREBRUM: No acute intra-axial hemorrhage. No edema, mass effect, midline shift, or herniation. WHITE MATTER: There is slight widely scattered periventricular-subcortical T2/FLAIR hyperintense white matter disease, nonspecific, though likely secondary to chronic microvascular ischemia. POSTERIOR FOSSA: Brainstem and cerebellum are unremarkable. DIFFUSION IMAGING: No restricted diffusion to suggest acute/subacute ischemia or infarct. EXTRAAXIAL SPACES: No extra-axial fluid collection. No extra-axial mass. BRAIN VOLUME: Mild cerebral volume loss. PITUITARY: Unremarkable. VASCULATURE: No flow disturbance evident. CALVARIUM: Unremarkable. ORBITS: No acute abnormality. Ocular lenses and globes normal in conformation and position. PARANASAL SINUSES AND MASTOIDS: Paranasal sinuses clear. Mastoid air cells well aerated. OTHER: No other significant finding. IMPRESSION: No acute intracranial process with chronic findings as above. THIS IS AN ELECTRONICALLY VERIFIED FINAL REPORT 06/25/2025 8:40 AM - Electronically signed by Julio Thomas M.D. ZAHRAA: ZAHRAA Report ID: [id number] Reading Location: [id number] Procedure Note Julio Thomas MD - 06/25/2025 EXAM DESCRIPTION: MRI BRAIN WITHOUT CONTRAST REASON FOR STUDY: Dizziness and gait imbalance status post fall from unspecified height with acute closed head injury early May 2025. Noprovided focal neurologic deficits. No provided past medical or surgical history. TECHNIQUE: Multiplanar imaging includes non-contrasted T1, T2, FLAIR, and diffusion with ADC map sequences. Additional sequence(s) sensitive [employer]. Images stored on PACS. COMPARISON: Relevant portions of MRI cervical spine without contrast 05/12/2021. FINDINGS: CEREBRUM: No acute intra-axial hemorrhage. No edema, mass effect,midline shift, or herniation. WHITE MATTER: There is slight widely scattered periventricular-subcortical T2/FLAIR hyperintense white matter disease, nonspecific, though likely secondary to chronic microvascular ischemia. POSTERIOR FOSSA: Brainstem and cerebellum are unremarkable. DIFFUSION IMAGING: No restricted diffusion to suggest acute/subacute ischemia or infarct. EXTRAAXIAL SPACES: No extra-axial fluid collection. No extra-axialmass. BRAIN VOLUME: Mild cerebral volume loss. PITUITARY: Unremarkable. VASCULATURE: No flow disturbance evident. CALVARIUM: Unremarkable. ORBITS: No acute abnormality. Ocular lenses and globes normal in conformation and position. PARANASAL SINUSES AND MASTOIDS: Paranasal sinuses clear. Mastoid aircells well aerated. OTHER: No other significant finding. IMPRESSION: No acute intracranial process with chronic findings as above. THIS IS AN ELECTRONICALLY VERIFIED FINAL REPORT 06/25/2025 8:40 AM - Electronically signed by Julio Thomas M.D. 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 ADVANCE DIRECTIVE 01/10/2018 7:07 AM ADVANCE DIRECTIVE 01/10/2018 Advance Di rective Checklist * Full Code (Latest Code Status on File) Date Activated Date Inactivated Comments 05/19/2020 5:57 PM 05/22/2020 6:26 PM * Full Code Date Activated Date Inactivated Comments 02/09/2019 12:47 PM 02/17/2019 8:35 PM * Full Code Date Activated Date Inactivated Comments 11/17/2018 9:45 PM 11/20/2018 6:51 PM * LIMITED - No CPR Date Activated Date Inactivated Comments 11/08/2018 6:04 AM 11/14/2018 9:35 PM Question Answer Comments Provide aggressive medical m anagement before a full cardiopulmonary arrest occurs. Use antibiotics, IV Fluids, and medical treatment unless specifically selected below: No intubation * Full Code Date Activated Date Inactivated Comments 11/08/2018 6:04 AM 11/08/2018 6:04 AM Care Teams Audiology Director Relationship Specialty Start Date End Date Dimitrios Monroy PA [address] [place] [address] PCP - General Internal Medicine 01/02/18 [place] [address] [place] [address] Consulting Physician Internal Medicine 11/20/18
--- OUTSIDE RECORDS SUMMARY | 2025-07-09 10:15 | XMS_ITS | Clinical Summary ---
Author Organization [facility] Address [address] [place] [address] Care Team Providers Care Human Services Assistant Name Role Phone Shahbaz Eaton MD Unavailable Richie Min MD Primary Care Provider [phone] Source Comments [facility],non-owned Affiliates and Associated Physician Practices is amultiple site organization consisting of ambulatory clinics and hospital sitesin [place], [place], [place] and [place]. This disclosure is being madepursuant to the Care Everywhere program and may not contain all information available regarding this patient. Last updated 18.[facility] Allergies Active Allergy Reactions Criticality Noted Date Comments Sulfamethoxazole W-Trimethoprim Rash Medium 07/07/2018 Celecoxib Anaphylaxis High 05/19/2018 Erythromycin Rash Medium 05/19/2018 Latex Rash Medium 03/23/2024 Penicillins Swelling High 05/19/2018 Kdc:Red Dye+Yellow Dye+Ci Pi gment Blue 63+Phenazopyridine Anaphylaxis High 05/19/2018 Sulfa Drugs Anaphylaxis High 05/19/2018 Medications * Be aware that medications may not be up to date on this document. Alwaysverify current medications with the patient. HYDROcodone-nabeel taminophen (NORCO) 10-325 MG tablet Take 1 (one) tablet by mouth 2 times daily as needed for Pain (patient takes if pain is 9-10) Active amLODIPine (NORVASC) 10 MG tablet Take 1 (one) tablet by mouth once daily Active cyclobenzaprine (FLEXERIL) 10 MG tablet Take 1 (one) tablet by mouth nightly as needed for Muscle Spasms Separate by at least 6 hours from baclofen. Active esomeprazole (NEXIUM) 40 MG capsule Take 1 (one) capsule by mouth once daily Active baclofen (LIORESAL) 10 MG tablet Take 1 (one) tablet by mouth 2 times daily as needed for Muscle Spasms Patient says he usually only takes in the morning Active albuterol HFA (PROAIR HFA) 108 (90 BASE) MCG/ACT inhaler Inhale 2 (two) puffs by mouth 4 times daily as needed for Shortness of Breath or Wheezing Active spironolactone (ALDACTONE) 50 MG tablet Take 1 (one) tablet by mouth once daily Patient says he takes 1/2 tablet in the morning and 1/2 tablet at night Active atorvastatin (LIPITOR) 20 MG tablet Take 1 (one) tablet by mouth at bedtime Active aspirin (ASPIRIN) 81 MG chew tablet Take 1 (one) tablet by mouth once daily Active traZODone (DESYREL) 50 MG tablet Take 1 (one) tablet by mouth at bedtime Active vitamin D, ergocalciferol, (DRISDOL) 04258 UNITS capsule Take 1 (one) capsule by mouth every 7 days Active umeclidinium-vi lanterol (ANORO ELLIPTA) 62.5-25 MCG/INH inhaler Inhale 1 (one) puff by mouth once daily Active mirabegron ER 24hr (MYRBETRIQ) 25 MG tablet Take 1 (one) tablet by mouth once daily Active acetaminophen CR (TYLENOL ARTHRITIS PAIN) 650 MG tablet Take 1 (one) tablet to 2 (two) tablets by mouth nightly as needed for Pain Patient takes 1-2 tablets (usually 2) po at night prn pain Active calcium carbonate (TUMS) 500 MG chew tablet Take 1 tablet by mouth 3 times daily as needed with food for Heartburn 20 tablet 8 Active gabapentin (NEURONTIN) 300 MG capsule Take 1 capsule by mouth 3 times daily 90 capsule 8 Active OXcarbazepine (TRILEPTAL) 150 MG tablet Take 1 tablet by mouth 2 times daily 60 tablet 8 Active Active Problems Problem Noted Date Diagnosed Date Cervical myelopathy 06/16/2018 Facial droop 05/18/2018 Stiffness of upper arm joint, left Left-sided weakness Paroxysmal atrial fibrillation Generalized abdominal pain Family History Medical History Relation Name Comments Aneurysm, Aortic Father CAD (Coronary Artery Disease) Mother Relation Name Status Comments Father Mother Social History Tobacco Use Types Packs/Day Years Used Date Smoking Tobacco: Former Cigarettes Q uit: 05/19/2001 Smokeless Tobacco: Never Sex and Gender Information Value Date Recorded Sex Assigned at Not on file Legal Sex Male 3:20 PM CDT Gender Identity Not on file Sexual Orientation Not on file 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 file Not on file Not on file Last Filed Vital Signs Vital Sign Reading Time Taken Comments Blood Pressure 117/75 06/03/2018 8:27 AM CDT Pulse 84 06/03/2018 8:27 AM CDT Temperature 36.3 C (97.3 F) 06/03/2018 8:27 AM CDT Respiratory Rate 18 06/03/2018 8:27 AM CDT Oxygen Saturation 92% 06/03/2018 8:27 AM CDT Inhaled Oxygen Concentration - - Weight 104.9 kg (231 lb 4.8 oz) 06/16/2018 8:58 AM CDT Height 185.4 cm (6' 1) 06/16/2018 8:58 AM CDT Body Mass Index 30.52 06/16/2018 8:58 AM CDT Plan of Treatment Health Maintenance Due Date Last Done Comments COLON MONITORING 1952 COLONOSCOPY - COLON CA SCREENING 1952 CT COLONOGRAPHY - COLON CA SCREENING 1952 FIT - COLON CA SCREENING 1952 FLEX SIG - COLON CA SCREENING 1950 MEDICARE AWV 12 MONTHS 1950 HIB VACCINE (1 of 1 - Risk 1-dose series) 05/16/1953 MENINGOCOCCAL GROUPS A/C/Y/W VACCINE (1 - Risk 2-dose series) 02/14/1954 MENINGOCOCCAL (Group B) VACCINE SHARED DECISION-MAKING (1 of 4 - Increased Risk) 02/14/1962 HEPATITIS C SCREENING 02/10/1970 DTAP/TDAP/TD VACCINES (1 - Tdap) 02/14/1971 PNEUMOCOCCAL VACCINE 50+ (1 of 2 - PCV) 02/14/1971 ZOSTER VACCINE (1 of 2) 02/14/2002 Respiratory Syncytial Virus (RSV) Vaccine Pt: or over 60 yrs (1 - Risk 60-74 years 1-dose series) 2012 AAA SCREENING 02/14/2017 COVID-19 VACCINE (2023-2 5 season) 2024 09/06/2021, 02/05/2021, 01/12/2021 DEPRESSION SCREENING 11/11/2024 INFLUENZA VACCINE (#1) 2025 08/06/2016 COLOGUARD (AGES 45-75) - COL ON CA SCREENING 07/09/2026 07/09/2023 Colorectal Cancer Screening 07/09/2026 HEPATITIS B VACCINE Aged Out No longe r eligible based on patient's age to complete this topic HPV VACCINE Aged Out No longer eligi ble based on patient's age to complete this topic Insurance [facility] MEDICARE [facility] Advance Directives * Full Code (Latest Code Status on File) Date Activated Date Inactivated Comments 05/19/2018 5:49 AM 06/03/2018 2:25 PM Care Teams Human Services Assistant Relationship Specialty Start Date End Date Richie Min MD [address] [place], [place] [id number] PCP - General Gastroenterology 03/23/24 Shahbaz Eaton MD [address] [facility] [address] [place] [id number] Internal Medicine 03/05/24
--- OUTSIDE RECORDS SUMMARY | 2025-07-09 10:15 | XMS_ITS | Encounter Summary ---
Author Organization [facility] Address [address] [place] [address] Care Team Providers Care Ditch Rider Name Role Phone Dimitrios Monroy Primary Care Provider + Yared Up FRAME FEEDER Unavailable [phone] Mesfin Ramirez SOUND TRUCK OPERATOR Unavailable [phone] Arsenio Stovera L. DNP Unavailable Mesfin Ramirez SOUND TRUCK OPERATOR Unavailable [phone] Aquiles Upian FRAME FEEDER Unavailable Ck Teconda L. DNP Unavailable Yolanda Pritchard MD Unavailable Aquiles Upian FRAME FEEDER Unavailable [phone] Mesfin Ramirez SOUND TRUCK OPERATOR Unavailable Ck Teconda L. DNP Unavailable Annel Yared FRAME FEEDER Unavailable [phone] Ck Teconda Mitch DNP Unavailable Mesfin Ramirez SOUND TRUCK OPERATOR Unavailable Aquiles Upian FRAME FEEDER Unavailable Mesfin Ramirez SOUND TRUCK OPERATOR Unavailable [phone] Encounter Details Date Type Department Care Team (Late st Contact Info) Description 09/26/2018 Patient Outreach Transition to Wellness [address] 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 Also tested positive at [facility], but no records indicate previous positive at [facility] facility. Care Everywhere chart does not indicate a past + culture. 09/22/2018 09/22/2018 06/28/2021 5:00 AM C DT VRE Comment:L hip 11/20/18 11/20/2018 11/20/2018 06/28/2021 5:00 AM CDT documented as of this encounter Care Teams Ditch Rider Relationship Specialty Start Date End Date Dimitrios Monroy PA [address] [place] [address] PCP - General Internal Medicine 01/02/18 Yared Up, FRAME FEEDER [address] [place] [address] CHAP Outpatient Sandstone Inspector Repairer 09/18/18 10/05/18 Mesfin Ramirez, SOUND TRUCK OPERATOR [address] [place] [address] [facility] Outpatient Sandstone Inspector Repairer 09/18/18 10/05/18 Roman Stover DNP [address] [place] [address] Nurse Practitioner Internal Medicine 09/18/18 10/05/18 Mesfin Ramirez, [facility] [address] [place] [address] CHAP Outpatient Sandstone Inspector Repairer 10/09/18 11/17/18 Yared Up, [facility] [address] [place] [address] CHAP Outpatient Sandstone Inspector Repairer 10/09/18 11/17/18 Roman Stover DNP [address] [address] [place] [address] Nurse Practitioner Internal Medicine 10/09/18 11/17/18 [place] [address] [place] [address] Consulting Physician Internal Medicine 11/20/18 Yared Up, [facility] [address] [place] [address] CHAP Outpatient Sandstone Inspector Repairer 11/21/18 01/13/19 Mesfin Ramirez, [facility] [address] [place] [address] CHAP Outpatient Sandstone Inspector Repairer 11/21/18 01/13/19 Roman Stover DNP [address] [address] [place] [address] Nurse Practitioner Internal Medicine 11/21/18 01/13/19 Yared Up, [facility] [address] [place] [address] [facility] Outpatient Sandstone Inspector Repairer 01/14/19 02/08/19 Roman Stover[place] DNP [address] [address] [place] [address] Nurse Practitioner Internal Medicine 01/14/19 01/14/19 Mesfin Ramirez, SOUND TRUCK OPERATOR [address] [place] [address] [facility] Outpatient Sandstone Inspector Repairer 01/14/19 02/08/19 Yared Up, FRAME FEEDER [address] [place] [address] [facility] Outpatient Sandstone Inspector Repairer 02/18/19 05/17/19 Mesfin Ramirez, SOUND TRUCK OPERATOR [address] [place] [address] [facility] Outpatient Sandstone Inspector Repairer 02/18/19 05/17/19 documented as of this encounter
--- OUTSIDE RECORDS SUMMARY | 2025-07-09 10:15 | XMS_ITS | Clinical Summary ---
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 Active esomeprazole (NEXIUM) 40 MG Pack Take 40 mg by mouth every morning (before breakfast). Active chlorthalidone (HYGROTON) 50 MG Tablet Take 50 mg by mouth daily. Active cyclobenzaprine (FLEXERIL) 10 MG Tablet Take 10 mg by mouth 3 times daily as needed for Muscle spasms. Active baclofen (LIORESAL) 10 MG Tablet Take 10 mg by mouth 3 times daily. Active atorvastatin (LIPITOR) 20 MG Tablet Take 20 mg by mouth daily. Active nortriptyline (PAMELOR) 10 MG Capsule Take 10 mg by mouth nightly. Active Cholecalciferol (VITAMIN D PO) Take 50,000 Units by mouth once a week. Active Aspirin 81 MG Tablet Take 81 mg by mouth daily. Active Albuterol Sulfate (PROAIR HFA IN) take by inhalation. Active fluticasone-cassie meterol (ADVAIR DISKUS) 250-50 MCG/DOSE AEROSOL POWDER, BREATH ACTIVATED take 1 Puff by inhalation 2 times daily. Active tiotropium (SPIRIVA HANDIHALER) 18 MCG Capsule take 1 Puff by inhalation daily. Active multiple vitamin with minerals (CENTRUM SILVER) Tablet Take 1 Tab by mouth daily. Active calcium 500 MG TabletIndicatio ns:1200 mg a day per pt's list Take 500 mg by mouth 2 times daily. Indications: 1200 mg a day per pt's list Active Ascorbic Acid (VITAMIN C PO) Take by mouth. Active VITAMIN E PO Take by mouth. Ac tive Acetaminophen (TYLENOL PO) Take by mouth. Ac tive Ibuprofen (ADVIL PO) Take by mouth as needed. Active MAGNESIUM PO Take by mouth daily. Active gabapentin (NEURONTIN) 300 MG Capsule TAKE 1 CAPSULE THREE TIMES A DAY GRADUALLY INCREASE UNTIL AT 2 CAPSULES THREE TIMES DAILY . SEE ATTACHED SHEET 6 8 Active OXcarbazepine (TRILEPTAL) 150 MG Tablet TAKE ONE TABLET TWICE DAILY 6 8 Active Ergocalciferol (VITAMIN D2 PO) Vitamin D2 50,000 unit capsule TAKE 1 CAPSULE EVERY WEEK WITH MEALS Active Mirabegron ER 25 MG TABLET SR 24 HR Take by mouth. Activ e spironolactone (ALDACTONE) 50 MG Tablet 25 mg 2 times daily. Active naproxen sodium (ANAPROX) 220 MG Tablet Take 220 mg by mouth 2 times daily (with meals). Active furosemide (LASIX) 40 MG Tablet Take 40 mg by mouth daily. Active ergocalciferol (VITAMIN D) 45701 UNIT Capsule 9 Active STOOL SOFTENER LAXATIVE 100 MG Capsule TAKE 1 CAPSULE DAILY 6 9 Active LINZESS 145 MCG Capsule 9 Active DULoxetine (CYMBALTA) [address] Particles 9 Active potassium chloride CR (KLORCON) 10 MEQ Tablet Controlled Release TAKE 2 TABLETS EVERY DAY 2 9 Active umeclidinium-vi lanterol (ANORO ELLIPTA) 62.5-25 MCG/INH AEROSOL POWDER, BREATH ACTIVATED Anoro Ellipta 62.5 mcg-25 mcg/actuation powder for inhalation Active fluticasone furoate (ARNUITY ELLIPTA) 100 MCG/ACT AEROSOL POWDER, BREATH ACTIVATED Arnuity Ellipta 100 mcg/actuation powder for inhalation Active ferrous sulfate 324 (65 Fe) MG Tablet Delayed Response Take 65 mg by mouth. Active naproxen (NAPROSYN) 500 MG Tablet naproxen 500 mg tablet 3 Active alfuzosin (UROXATRAL) 10 MG TABLET SR 24 HR Take 1 Tablet by mouth daily. 4 Active carvedilol (COREG) 6.25 MG Tablet 4 Active finasteride (PROSCAR) 5 MG Tablet Take 1 Tablet by mouth daily. 4 Active HYDROcodone-nabeel taminophen (NORCO) 10-325 MG Tablet TAKE 1 TABLET BY MOUTH TWICE A DAY NEEDED 4 Active oxyCODONE-aceta minophen (Percocet) 7.5-325 MG TabletIndicatio ns:Nondisplaced comminuted fracture of shaft of right fibula, initial encounter for closed fracture,Closed fracture of multiple ribs of right side, initial encounter Take 1 Tablet by mouth every 8 hours as needed for Severe pain. 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 Resolved Problems Problem Noted Date Diagnosed Date Resolved Date Subareolar mass of right breast 12/18/2017 01/23/2018 Abnormal mammogram of right breast 12/03/2017 01/23/2018 Breast pain, right 11/27/2017 8 History of right breast cancer 11/27/2017 01/23/2018 Encounters Date Type Department Care Team Description 05/31/2025 6:31 PM CDT - 05/31/2025 11:59 PM CDT Hospital Encounter [facility] [address] [place] [address] Viktoria Padgett APN, BRIM POUNCING MACHINE OPERATOR Discharge Disposition: Discharged to home or Selfcare 05/31/2025 6:30 PM CDT Hospital Encounter [facility] [address] [place] [address] Viktoria Padgett APN, CNP Discharge Disposition: Discharged to home or Selfcare 05/31/2025 Travel 05/25/2025 Transcribe Orders [facility] Central Scheduling [address] [place] [address] Viktoria Padgett APN, CNP Concussion with unknown loss of consciousness status, initial encounter (Primary Dx); Closed fracture of one rib, unspecified laterality, initial encounter 04/28/2025 Transcribe Orders [facility] Diagnostic Radiology [address] [place] [address] Viktoria Padgett APN, CNP Protrusion of lumbar intervertebral disc (Primary Dx); Protrusion of cervical intervertebral disc; Other manager long term care (current) drug therapy; Pre-operative laboratory examination; Encounter for therapeutic drug monitoring 04/27/2025 Transcribe Orders [facility] Central Scheduling [address] [place] [address] Viktoria Padgett APN, CNP Protrusion of cervical intervertebral disc (Primary Dx); Protrusion of lumbar intervertebral disc from Last 3 Months Immunizations Immunization Administration Dates Next Due Influenza, high-dose, trivalent, PF 09/04/2024 Pneumococcal conjugate PCV20 , polysaccharide [id number] conjugate, adjuvant, PF 09/04/2024 Family History Medical History Relation Name Comments Cancer Father Hypertension Father Breast Cancer Maternal Aunt 1 Breast Cancer Maternal Aunt 2 Congestive Heart Failure Mother Hypertension Mother Stroke Mother Breast Cancer Paternal Aunt Relation Name Status Comments Father Maternal Aunt 1 Maternal Aunt 2 Mother Paternal Aunt Social History Tobacco Use Types Packs/Day Years Used Date Smoking Tobacco: Former Cigarettes 1 Smokeless Tobacco: Never Tobacco Cessation:Counseling Given: Not Answered Alcohol Use Standard Drinks/Week Comments Yes 0 (1 standard drink = 0.6 oz pur e alcohol) occasionally Sex and Gender Information Value Date Recorded Sex Assigned at Not on file Legal Sex Male 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 Gender Identity Not on file Sexual Orientation Not on file Last Filed Vital Signs Vital Sign Reading Time Taken Comments Blood Pressure 124/103 03/11/2025 9:15 PM CDT Pulse 106 03/11/2025 9:15 PM CDT Temperature 36.3 C (97.4 F) 03/11/2025 4:41 PM CDT Respiratory Rate 17 03/11/2025 9:15 PM CDT Oxygen Saturation 92% 03/11/2025 9:15 PM CDT Inhaled Oxygen Concentration - - Weight 120.2 kg (265 lb) 03/11/2025 4:39 PM CDT Height 185.4 cm (6' 1) 03/11/2025 4:39 PM CDT Body Mass Index 34.96 03/11/2025 4:39 PM CDT Plan of Treatment Health Maintenance Due Date Last Done Comments Hepatitis C Virus (HCV) Screening 1950 Meningococcal Immunization (ACWY) (1 - Risk 2-dose series) 02/14/1954 Cologuard 02/14/1997 Colonoscopy 02/14/1997 Colorectal Cancer Screening 02/14/1997 Immunochemical Fecal Occult Blood 02/14/1997 Zoster Immunization (1 of 2) 02/14/2002 AAA Screening Ultrasound 02/14/2017 Mammogram 12/03/2018 12/03/2017 SARS-COV-2 Immunization ( season) 2024 07/31/2023, 08/31/2022, 03/06/2022, Additional history exists Influenza Immunization (#1) 2025 10/2 03/2024, 07/31/2023, 08/31/2022, Additional history exists DTaP/Tdap/Td Immunization Discontinued 05/21/2020, TdaP Immunization Completed 05/21/2020, 12/10/2014 Respiratory Syncytial Virus (RSV) Immunization (Adult) Completed 08/01/2023 Pneumococcal Immunization (50+ years) Completed 09/04/2024, 08/18/2015 Pneumococcal Immunization Combined Discontinued 09/04/2024, 08/18/2015 Hepatitis B Immunization Aged Out No longer eligible based on patient's age to complete this topic Human Papillomavirus (HPV) Immunization Aged Out No longer eligible based on patient's age to complete this topic Rotavirus Immunization Aged Out No lo nger eligible based on patient's age to complete this topic Procedures Procedure Name Priority Date/Time Associated Diagnosis Comments CT HEAD OR BRAIN WO CONTRAST Routine 05/31/2025 7:12 PM CDT Concussion with unknown loss of consciousness status, initial encounter CT CHEST W/O CONTRAST Routine 05/31/2025 7:12 PM CDT Closed fracture of one rib, unspecified laterality, initial encounter FAMILY MEDICINE CONSULT 04/20/2025 12:00 AM CDT JERAMY DIAG BILATERAL DIGITAL W CAD Routine 12/03/2017 11:33 AM LOADER MAGAZINE GRINDER History of right breast cancer Breast pain, right from Last 3 Months or Most Recently Relevant to Health Maintenance Results * CT HEAD OR BRAIN WO CONTRAST (05/31/2025 7:12 PM CDT) Anatomical Region Laterality Modality Head N/A Computed Tomogra phy 06/01/2025 9:19 AM CDT Impressions 06/01/2025 9:22 AM CDT IMPRESSION: 1. No acute intracranial hemorrhage or midline shift. 2. Chronic microvascular ischemic type white-matter changes and additional findings as above. 3. Further evaluation with MRI as clinically indicated. Narrative 06/01/2025 9:22 AM CDT EXAM DESCRIPTION: CT HEAD OR BRAIN WO CONTRAST REASON FOR STUDY: concussion, fall 02/25/25. hx htn, seizures and smoker. TECHNIQUE: Axial images acquired through the brain without intravenous contrast. Images stored on PACS. Automated exposure control was used as a dose optimization technique for this examination. COMPARISON: None available. FINDINGS: Suboptimal evaluation due to imaging technique with resultant prominent beam hardening and streak artifacts. There is no acute intracranial hemorrhage or midline shift. Please note without initial trauma imaging for comparison subtle subacute to chronic hemorrhage could be obscured by CT technique and the need for further evaluation with MRI as clinically indicated. There is mild diffuse parenchymal volume loss. The basilar cisterns are maintained. The subcortical and periventricular white matter low attenuation in the bilateral cerebral hemispheres is nonspecific but compatible with chronic microvascular ischemic type change in a patient of this age. The bilateral globes are symmetric. Mucosal thickening in the bilateral ethmoid air cells and left maxillary sinus floor. Right frontal sinus tiny osteoma. Multiple of the maxillary teeth are missing. Remaining teeth with dental cavities and periapical lucencies. The mastoid air cells are predominantly clear. Djnpv-ugwvtrs-likr-left temporomandibular joint degenerative changes. There are vascular calcifications. No depressed calvarial fracture. THIS IS AN ELECTRONICALLY VERIFIED FINAL REPORT 06/01/2025 9:19 AM - Electronically signed by Jeyson Fonseca D.O. AP: AP Report ID: [id number] Reading Location: [id number] Procedure Note Jeyson Fonseca DO - 06/01/2025 EXAM DESCRIPTION: CT HEAD OR BRAIN WO CONTRAST REASON FOR STUDY: concussion, fall 02/25/25. hx htn, seizures and smoker. TECHNIQUE: Axial images acquired through the brain without intravenous contrast. Images stored on PACS. Automated exposure control was used as a dose optimization technique for this examination. COMPARISON: None available. FINDINGS: Suboptimal evaluation due to imaging technique with resultant prominent beam hardening and streak artifacts. There is no acute intracranial hemorrhage or midline shift. Please note without initial trauma imaging for comparison subtle subacute to chronic hemorrhage could be obscured by CT technique and the need for further evaluation with MRI as clinically indicated. There is mild diffuse parenchymal volume loss. The basilar cisterns are maintained. The subcortical and periventricular white matter low attenuation in the bilateral cerebral hemispheres is nonspecific but compatible with chronic microvascular ischemic type change in a patient of this age. The bilateral globes are symmetric. Mucosal thickening in the bilateral ethmoid air cells and left maxillary sinus floor. Right frontal sinus tiny osteoma. Multiple of the maxillary teeth are missing. Remaining teeth with dental cavities and periapical lucencies. The mastoid air cells are predominantly clear. Vgszi-wyjnlst-gapv-left temporomandibular joint degenerative changes. There are vascular calcifications. No depressed calvarial fracture. THIS IS AN ELECTRONICALLY VERIFIED FINAL REPORT 06/01/2025 9:19 AM - Electronically signed by Jeyson Fonseca D.O. AP: AP Report ID: [id number] Reading Location: [id number] IMPRESSION: 1. No acute intracranial hemorrhage or midline shift. 2. Chronic microvascular ischemic type white-matter changes and additional findings as above. 3. Further evaluation with MRI as clinically indicated. Viktoria Gregg Lorin SHEET PILE HAMMER OPERATOR, BRIM POUNCING MACHINE OPERATOR IMG CT ORDERABLES Fi nal Result * CT CHEST W/O CONTRAST (05/31/2025 7:12 PM CDT) Anatomical Region Laterality Modality Chest N/A Computed Tomogra phy 06/09/2025 5:27 AM CDT Impressions 06/09/2025 5:30 AM CDT IMPRESSION: 1. Healing right-sided rib fractures without displacement or adjacent hematoma. 2. Subtle interstitial densities right lower lobe may represent atelectasis or subtle pneumonitis. Narrative 06/09/2025 5:30 AM CDT EXAM DESCRIPTION: CT CHEST W/O CONTRAST REASON FOR STUDY: 3 month fu Right rib fx 4-8, fall 02/25/25. Hx copd, CHF, HTN and smoker. TECHNIQUE: CT scan of the chest performed without intravenous contrast using helical scanning technique. Reconstructed coronal and sagittal MPR images reviewed. All images stored on PACS. Automated exposure control was used as a dose optimization technique for this examination. COMPARISON: 03/11/2025 CT FINDINGS: The sensitivity for detection of solid visceral lesions is diminished without the use of intravenous contrast. LUNGS: Central airways are patent. Subtle interstitial band like densities right lower lobe primarily generally similar to previous and may indicate atelectasis. Subtle pneumonitis probably less likely. PLEURA: No effusion. No pneumothorax. MEDIASTINUM/MICHELLE: No identified masses or abnormal nodes. HEART: Heart size mildly enlarged. Minimal pericardial effusion. CORONARY ARTERY CALCIFICATION: Present VASCULATURE: No thoracic aortic aneurysm. AXILLA: No adenopathy. CHEST WALL: Healing right-sided rib fractures without displacement or adjacent hematoma. HARDWARE/LINES/TUBES: Implanted device left anterior chest wall. UPPER ABDOMEN: No significant abnormality. MUSCULOSKELETAL: No significant abnormality. OTHER: No other significant abnormality. THIS IS AN ELECTRONICALLY VERIFIED FINAL REPORT 06/09/2025 5:27 AM - Electronically signed by Tiago Russo M.D. RB: PANKAJ Report ID: [id number] Reading Location: [id number] Procedure Note Tiago Russo MD - 06/09/2025 EXAM DESCRIPTION: CT CHEST W/O CONTRAST REASON FOR STUDY: 3 month fu Right rib fx 4-8, fall 02/25/25. Hx copd, CHF, HTN and smoker. TECHNIQUE: CT scan of the chest performed without intravenous contrast using helical scanning technique. Reconstructed coronal and sagittal MPR images reviewed. All images stored on PACS. Automated exposure control was used as a dose optimization technique for this examination. COMPARISON: 03/11/2025 CT FINDINGS: The sensitivity for detection of solid visceral lesions is diminished without the use of intravenous contrast. LUNGS: Central airways are patent. Subtle interstitial band like densities right lower lobe primarily generally similar to previous and may indicate atelectasis. Subtle pneumonitis probably less likely. PLEURA: No effusion. No pneumothorax. MEDIASTINUM/MICHELLE: No identified masses or abnormal nodes. HEART: Heart size mildly enlarged. Minimal pericardial effusion. CORONARY ARTERY CALCIFICATION: Present VASCULATURE: No thoracic aortic aneurysm. AXILLA: No adenopathy. CHEST WALL: Healing right-sided rib fractures without displacement or adjacent hematoma. HARDWARE/LINES/TUBES: Implanted device left anterior chest wall. UPPER ABDOMEN: No significant abnormality. MUSCULOSKELETAL: No significant abnormality. OTHER: No other significant abnormality. THIS IS AN ELECTRONICALLY VERIFIED FINAL REPORT 06/09/2025 5:27 AM - Electronically signed by Tiago Russo M.D. RB: PANKAJ Report ID: [id number] Reading Location: [id number] IMPRESSION: 1. Healing right-sided rib fractures without displacement or adjacent hematoma. 2. Subtle interstitial densities right lower lobe may represent atelectasis or subtle pneumonitis. Viktoria KUMARIN, BRIM POUNCING MACHINE OPERATOR IMG CT ORDERABLES Fi nal Result * FAMILY MEDICINE CONSULT (04/20/2025 12:00 AM CDT) 04/20/2025 us Provider Scan GENERIC SCAN ORDERS CONSULT Thuy karlos Result SCAN * JERAMY DIAG BILATERAL DIGITAL W CAD (12/03/2017 11:33 AM LOADER MAGAZINE GRINDER) Anatomical Region Laterality Modality breast Bilateral Mammography 12/03/2017 10:5 0 AM LOADER MAGAZINE GRINDER Narrative 12/03/2017 1:47 PM LOADER MAGAZINE GRINDER - JERAMY DIAG BILATERAL DIGITAL W CAD - JERAMY US BREAST LIMITED CYNTHIA MALE BILATERAL DIGITAL DIAGNOSTIC MAMMOGRAM WITH CAD AND TARGETED BILATERAL ULTRASOUND WITH MEDIOLATERAL OBLIQUE CRANIOCAUDAL: 12/03/2017 The study was acquired using digital technology and interpreted from soft copy. Current study was also evaluated with ICAD version 7.2. CLINICAL: Diagnostic study. Previous history of right breast cancer. Two maternal aunts had breast cancer. One paternal aunt had breast cancer. Palpable lumps both breasts. COMPARISONS: No prior exams were available for comparison. FINDINGS: There is a mass in the right breast central to the nipple in the retroareolar region. It is somewhat flame shaped and does not have the typical appearance of architectural distortion. There is a loop recorder incidentally seen in the medial left chest wall. No underlying mass seen in the left subareolar region. Ultrasound: Left: There is no mass in the left subareolar region. Right: 1 centimeter deep to the nipple is an oval slightly irregular hypoechoic mass measuring about 1 centimeter. There are normal appearing right axillary lymph nodes. Particularly given the patient's previous history of breast cancer ultrasound-guided biopsy is recommended. IMPRESSION: OVERALL STUDY BIRADS: 4 SUSPICIOUS ABNORMALITY The mass in the right breast needs ultrasound-guided biopsy. The charge nurse in the physician's office was notified.. The patient has been already contacted. Electronically signed by: Gisselle Muñoz M.D. ml/:12/03/2017 12:18:05 Inspector Tool: Rosa Elena Marquez(Yulisa), [facility] letter sent: Abnormal Exam Reading location: [facility] OVERALL STUDY BIRADS: 4 Suspicious abnormality Procedure Note Gisselle Muñoz MD - 12/03/2017 - JERAMY DIAG BILATERAL DIGITAL W CAD - JERAMY US BREAST LIMITED CYNTHIA MALE BILATERAL DIGITAL DIAGNOSTIC MAMMOGRAM WITH CAD AND TARGETED BILATERAL ULTRASOUND WITH MEDIOLATERAL OBLIQUE CRANIOCAUDAL: 12/03/2017 The study was acquired using digital technology and interpreted from soft copy. Current study was also evaluated with ICAD version 7.2. CLINICAL: Diagnostic study. Previous history of right breast cancer. Two maternal aunts had breast cancer. One paternal aunt had breast cancer. Palpable lumps both breasts. COMPARISONS: No prior exams were available for comparison. FINDINGS: There is a mass in the right breast central to the nipple in the retroareolar region. It is somewhat flame shaped and does not have the typical appearance of architectural distortion. There is a loop recorder incidentally seen in the medial left chest wall. No underlying mass seen in the left subareolar region. Ultrasound: Left: There is no mass in the left subareolar region. Right: 1 centimeter deep to the nipple is an oval slightly irregular hypoechoic mass measuring about 1 centimeter. There are normal appearing right axillary lymph nodes. Particularly given the patient's previous history of breast cancer ultrasound-guided biopsy is recommended. IMPRESSION: OVERALL STUDY BIRADS: 4 SUSPICIOUS ABNORMALITY The mass in the right breast needs ultrasound-guided biopsy. The charge nurse in the physician's office was notified.. The patient has been already contacted. Electronically signed by: Gisselle Muñoz M.D. ml/:12/03/2017 12:18:05 Inspector Tool: Rosa Elena Marquez(Yulisa), [facility] letter sent: Abnormal Exam Reading location: [facility] OVERALL STUDY BIRADS: 4 Suspicious abnormality [facility], [facility]–1983 Nidia Nielson MD IMG MAMMO ORDERABLES Fin al Result from Last 3 Months or Most Recently Relevant to Health Maintenance Insurance [facility] MEDICARE Advance Directives Documents on File Type Date Recorded Patient Human Service Specialist Expl anation Living Will 01/09/2018 11:05 AM [facility] Teams Grooming Salon Manager Relationship Specialty Start Date End Date Richie Min MD [address] [place] [address] PCP - General Internal Medicine 12/28/24
[2025-07-09 10:23] LABS: Estimated CRCL calculation 88 ml/min; Estimated Glomerular Filt Rate > 60
[2025-07-09] MEDS: HYDROcodone/acetaminophen (*CRX) 5-325 MG TABLET 1 TAB PO (10:50)
[2025-07-09 10:52] VITALS: BP 127/56; PULSE 87; RESP 18; TEMP 36.6; O2SAT 94
--- NOTE | 2025-07-09 11:00 | PC.NURSE ---
ccollar removed per ERP
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
--- NOTE | 2025-07-09 13:10 | PC.NURSE ---
HANK wrap placed on right leg.
== END 2025-07-09 13:12 | disposition home or self-care (01) ==
PROVIDERS: Emergency Provider Physician Assistant; PCP Internal Medicine Gastroenterology
DX: S22.41XA Multiple fractures of ribs, right side, initial encounter for closed fracture (principal); S80.11XA Contusion of right lower leg, initial encounter; E78.5 Hyperlipidemia, unspecified; I10 Essential (primary) hypertension; Z87.891 Personal history of nicotine dependence; Z79.82 Long term (current) use of aspirin; N20.0 Calculus of kidney; M17.11 Unilateral primary osteoarthritis, right knee; V49.40XA Driver injured in collision with unspecified motor vehicles in traffic accident, initial encounter
CPT/HCPCS: 70450; 71260; 72125; 72129; 72132; 73564; 74177; 99284; A9270; Q9967